=== PATIENT | female | born 1960 | race Caucasian/White ===

== ENCOUNTER 2017-03-24 05:51 | Day surgery (SDC) | payer MEDICARE, OTHER ==
[2017-03-24] MEDS ORDERED: Ketamine HCl 50 MG/ML IV ONE (05:52)
[2017-03-24] MEDS ORDERED: DIPRIVAN 200 MG/20 ML IV ONE (05:52)
[2017-03-24] MEDS ORDERED: Lactated Ringers 1,000 ML IV SCH (07:00)
[2017-03-24] MEDS ORDERED: Lactated Ringers 1,000 ML IV ONE (08:41)
--- NOTE | 2017-03-24 09:36 | OP ---
SURGERY DATE/TIME: 03/24/201725 PREOPERATIVE DIAGNOSIS: Screening exam. POSTOPERATIVE DIAGNOSIS: Sigmoid polyp. PROCEDURE: Colonoscopy with polypectomy. SURGEON: Dr. Mead. ANESTHESIA: MAC. Medications given by anesthesia department. HISTORY: The patient is a 56 year-old white female who has had multiple colonoscopies in the past where previously polyps had been removed. The patient was felt to be time for reinvestigation. She was then reappraised of the risks of the procedure including the risk of perforation, phlebitis, untoward reaction to medication, bleeding and missed lesions. The patient verbalized her understanding and desired to have the procedure performed. DESCRIPTION OF PROCEDURE: The patient was given the medications by the anesthesia department. She had continuous pulse oximetry, ECG monitoring, intermittent blood pressure monitoring, and tidal CO2 monitoring during the examination. She was placed in the left lateral decubitus position. A digital rectal examination was performed and revealed normal anal sphincter tone and no masses. The flexible Olympus pediatric colonoscope was used to intubate the rectum. A view of the colon was developed sequentially to the cecum. Upon insertion and withdrawal there was noted approximately 1 cm sessile polyp in the sigmoid colon and this was removed using hot polypectomy snare. The polyp was retrieved for pathologic evaluation. No bleeding was noted during this portion of the procedure. The scope was removed from the patient who tolerated the procedure well and was sent back to OP recovery in good condition. The prep was noted to be fair.
[2017-03-24 10:20] VITALS: PULSE 64; O2SAT 96
[2017-03-24 10:21] VITALS: BP 132/66
== END 2017-03-24 09:50 | disposition home or self-care (01) ==
LOC: SDC 05:51
PROVIDERS: ATTEND Family Medicine
PROC: 0DBN8ZX Excision of Sigmoid Colon, Via Natural or Artificial Opening Endoscopic, Diagnostic (ICD-10-PCS; principal; 2017-03-24)
DX: K63.5 Polyp of colon (principal)
CPT/HCPCS: 00812; 88305; J2704